=== PATIENT | male | born 2000 | race African-American/Black ===

== ENCOUNTER 2023-01-22 19:38 | Emergency (ER) | payer SELFPAY ==
[~2023-01-22] VITALS: Ht 185.4 cm; Wt 125.1 kg
[2023-01-22] MEDS ORDERED: Tetanus/Diphtheria/Pertussis (Acell) ADULT Vaccine 0.5 ML IM ONE (20:30)
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
[2023-01-22 21:42] VITALS: BP 142/92
== END 2023-01-22 21:43 | disposition home or self-care (01) ==
LOC: ER FS 19:40
DX: S41.121A Laceration with foreign body of right upper arm, initial encounter (principal); W45.8XXA Other foreign body or object entering through skin, initial encounter; Z23 Encounter for immunization; V44.5XXA Car driver injured in collision with heavy transport vehicle or bus in traffic accident, initial encounter; Y92.410 Unspecified street and highway as the place of occurrence of the external cause
CPT/HCPCS: 90715